=== PATIENT | male | born 1950 | race Caucasian/White ===

== ENCOUNTER 2021-04-20 12:51 | Outpatient (CLI) | payer MEDICARE, OTHER, SELFPAY ==
--- NOTE | 2021-04-20 13:15 | DI.RAD_ITS ---
Exam(s) XR CHEST 2V PA LATERAL EXAM: XR CHEST 2V PA LATERAL CLINICAL HISTORY: COUGH R05.8. TECHNIQUE: 2D digital imaging was performed. COMPARISON: None FINDINGS: Heart size is normal. The mediastinum is not widened. Left lung is clear. There is a right infrahilar density measuring 2 x 1.5 cm. Possible mass versus is vessels visualized end-on. Follow-up CT scan recommended. There are no pleural effusions. IMPRESSION: Right infrahilar densities described above, either mass or possibly just prominent pulmonary artery v isualize end-on. Recommend follow-up CT scan. There are no other pulmonary findings and no pleural effusions evident. DATA REPOSITORY: RADIATION DOSE DELIVERED:
== END 2021-04-20 13:11 ==
PROVIDERS: Visit Provider Physician Assistant Medical
DX: R05.8 Other specified cough (principal); R91.8 Other nonspecific abnormal finding of lung field
CPT/HCPCS: 71046

== ENCOUNTER 2021-04-20 12:55 | Outpatient (REF) | payer MEDICARE, OTHER, SELFPAY ==
[2021-04-20 16:30] LABS: Abs Immature Grans 0.03 10^3/uL (0.0-0.06); Absolute Basophil Count 0.06 10^3/uL (0.0-0.2); Absolute Lymphocyte Count 2.29 10^3/uL (1.2-3.4); Absolute Monocyte Count 0.91 10^3/uL (0.1-0.8); Absolute Neutrophil Count 5.96 10^3/uL (1.2-6.7); Basophils % 0.6; Eosinophils % 1.1; HCT 44.1 % (40.0-50.0); HGB 14.7 g/dL (13.5-17.5); Immature Grans % 0.3; Lymphocytes % 24.5; MCH 30.2 pg (27.0-33.0); MCHC 33.3 % (32.0-36.0); MCV 90.7 fL (80-95); MPV 11.6 fL (8.0-11.0); Monocytes % 9.7; Neutrophils % 63.8; Nucleated RBC 0 %; Platelet Count 251 10^3/uL (130-400); RBC 4.86 10^6/uL (4.36-5.78); RDW 12.5 % (11.8-14.1); RDW-SD 41.1 fL; WBC 9.35 10^3/uL (4.4-10.8)
[2021-04-20 17:07] LABS: Anion Gap 7.6 mmol/L (3-11); BUN 22 mg/dL (7-18); CO2 30.4 mmol/L (21.0-32.0); Calcium 9.4 mg/dL (8.5-10.1); Chloride 105 mmol/L (98-107); Glucose 89 mg/dL (74-106); Potassium 4.2 mmol/L (3.5-5.1); Sodium 143 mmol/L (136-145)
[2021-04-21 11:30] LABS: COVID-19 RT-PCR UVMMC Result Negative (Negative)
== END 2021-04-20 12:56 | disposition home or self-care (01) ==
LOC: LBN 12:55
PROVIDERS: Visit Provider Physician Assistant Medical
DX: R06.00 Dyspnea, unspecified (principal); Z20.822 Contact with and (suspected) exposure to COVID-19; J06.9 Acute upper respiratory infection, unspecified
CPT/HCPCS: 80048; U0003; U0005; 85025; 85379

== ENCOUNTER 2021-04-21 09:04 | Outpatient (CLI) | payer MEDICARE, OTHER, SELFPAY ==
--- NOTE | 2021-04-21 | DI.CT_ITS ---
Exam(s) CT CHEST PE CTA EXAM: CT CHEST PE CTA CLINICAL HISTORY: DYSPNEA, R06.00, CXR SHOWED RT LUNG MASS. TECHNIQUE: Imaging Protocol: Axial CT angiography was performed with multi-slice acquisition and mu lti-planar and/or 3D reconstructions. CONTRAST MATERIAL: Intravenous: Omnipaque 350 Contrast volume:85 ml COMPARISON: CR XR CHEST 2V PA LATERAL from 04/20/2021 CR XR CHEST 2V PA LATERAL from 04/20/2021 FINDINGS: Pulmonary Arteries: No evidence of filling defect to suggest pulmonary emboli. Tracheobronchial tree: Patent where visualized. Mediastinum and Amanda: No dominant adenopathy or fluid collection. Pulmonary parenchyma: No consolidation or dominant measurable mass. Expiratory changes. 4 millimeter nodule superior to the aortic arch. Pleura: No effusion or pneumothorax. Heart: The heart is not dilated. Minimal coronary artery calcifications are seen. Aorta: Thoracic aorta non-dilated. No aneurysm. No dissection. Minimal calcification. Upper abdomen: Unremarkable. Bones: Unremarkable for age. IMPRESSION: No evidence of pulmonary embolism. No evidence of infrahilar mass. 4 millimeter left upper lobe nodule. No further follow-up indicated 4 a low risk patient. In a hig h risk patient a low-dose screening chest CT could be considered in 1 year. RADIATION DOSE DELIVERED: 469.49mGy.cm Total DLP DATA REPOSITORY: All CT scans at this facility are submitted to the National Radiology Data Registry (NRDR) Dose Index Registry (DIR) with the [employer] (ACR). RADIATION OPTIMIZATION: All CT scans at this facility use at least one of these dose optimization te chniques: automated exposure control; mA and/or kV adjustment per patient size (includes targeted exa ms where dose is matched to clinical indication); or iterative reconstruction.
[2021-04-21] MEDS: Normal Saline - Diluent 50 ML VIAL IV (09:11)
[2021-04-21] MEDS: Omnipaque 350 MG/ML 100 ML BTL IJ (09:12)
[2021-04-21] MEDS: Normal Saline Flush 10 ML SYR IVP (09:29)
== END 2021-04-21 09:24 ==
PROVIDERS: Visit Provider Physician Assistant Medical
DX: R06.09 Other forms of dyspnea (principal); R91.1 Solitary pulmonary nodule
CPT/HCPCS: 71275; J3490

== ENCOUNTER 2022-06-11 17:23 | Emergency (ER) | payer MEDICARE, OTHER, SELFPAY ==
--- NOTE | 2022-06-11 17:15 | RT.EKG_ITS ---
APPROVED REPORT Exam: Resting ECG Reason for Exam: CHEST PAIN Patient Location: E HR:58 bpm ECG Measurements Heart Rate 58 AXIS MA 150 P 47 QRSd 105 QRS -3 QT 421 T 30 QTc 414 Conclusion Sinus bradycardia...rate< 60
[2022-06-11 17:28] VITALS: BP 145/85; PULSE 64; RESP 18; TEMP 36.6; O2SAT 99
[2022-06-11 17:40] VITALS: RESP 18
--- NOTE | 2022-06-11 17:44 | ED.GENADUL_ITS ---
Discharge Plan Disposition Patient Disposition: Home Condition: Stable Discharge Details Chief Complaint: Chest Pain Clinical Impression: Chest pain Primary Care Provider: Cinthya,Local ED Provider: Mu Pozo Discharge Instructions Instructions: Chest Pain (ED) Additional Instructions: your blood work and xray did not show concerning findings at this time follow up with your primary care provider within 1 week if you feel more ill, have severe worsening pain or difficulty breathing return to the emergency department Medical Decision Making 71 yo male who states he has a hx of htn comes in with cc of left sided chest pain when he takes deep breaths in. He states this happens every few years, has had negative work ups for this in the past. He states this current episode started last night while sleeping. He denies radiation of pain, diaphoresis, pain with exertion, fevers, chills. He doesn't have pain with exertion. HE arrives stable and appears well on exam, caox4 speaking clearly. He localizes the pain to the left side of his chest and has no visible or palpable deformities. No jvd, no murmurs, normal lung sounds, soft non tender abdomen. Unclear etiology for his pain, will obtain ecg, troponin, and d dimer. No tearing back pain so doubt dissection labs and imaging unremarkable, he is stable in no distress. Given well over 3 hours of symptoms do not feel repeat troponin indicated. Will d/c and have him f/u with his pcp, return precautions given Differential Diagnosis Differential Diagnosis: chest wall pain, pe, ptx Imaging Data Radiologic Study: Attestation: I personally reviewed and interpreted this imaging study as follows: Imaging: X-Ray Radiologist's impression: no acute findings Lab Data Lab results reviewed: Yes I reviewed the patient's lab results. ECG Data Attestation: I personally reviewed and interpreted this ECG (s) as follows: Prior ECG tracings: not available for review Interpretation: sinus bradycardia, rate of 58, pr 150, no acute st t wave ischemic findings HPI General Mode of arrival: ambulatory . Date/Time Provider Initiated Documentation: 06/11/22 17:24 . Limitations to Documentation: no limitations . Information obtained by: patient . History of Present Illness 71 year old M presents to the emergency department with the chief complaint of chest pain, described as moderate, Patient started experiencing this day(s) (1) and it has been constant. No relieving factors improve symptom(s), No exacerbating factors reported . Patient notes no other symptoms.. Patient did receive the following treatments prior to arrival, none General Stated Complaint: Chest Pain KWAKU: 3 Review of Systems All systems reviewed & are unremarkable except as noted in HPI and below Constitutional Constitutional: Denies chills, Denies fever(s) and Denies weakness Eyes Eyes: Denies loss of vision Cardiovascular Cardiovascular: Denies dyspnea Respiratory Respiratory: Denies cough and Denies dyspnea Gastrointestinal Gastrointestinal: Denies abdominal pain, Denies nausea and Denies vomiting Integumentary/Breasts Skin/Breast: Denies rash Neurologic Neurologic: Denies loss of vision and Denies weakness PFSH All Active Problems (Updated 06/11/22 @ 19:50 by Mu Pozo MD) Chest pain (Acute) Social History Smoking/Tobacco Use Status: Never Smoking risk assessment performed?: Yes Alcohol Intake: current Alcohol Intake frequency: holidays/special occasions only Drug use: Never Substance use type: does not use Do you feel safe at home: Yes Do you feel safe in your relationship?: Yes Exam Const General: no acute distress Orientation: alert HENMT Head: normal to inspection Ears: external ears normal General nose exam: external nose normal Mouth: moist mucous membranes Eyes General: appearance normal, both eyes and all related structures Neck Neck: normal visual inspection Chest Chest: normal inspection of the chest Resp Effort & Inspection: normal respiratory effort and able to speak in complete sentences Auscultation: clear to auscultation bilaterally Cardio Jugular venous pressure: no JVD Rate: regular rate Heart Sounds: no murmurs GI Palpation: soft and nontender Skin General skin exam: no rashes or lesions noted Neuro General: patient alert and patient oriented x3 Extrem General: normal to inspection Psych Mental Status: mental status grossly normal Course Vital Signs Vital signs: Vital Signs Temperature 36.6 C 06/11/22 17:28 Pulse 64 06/11/22 17:28 Respiratory Rate 18 06/11/22 17:28 Blood Pressure 145/85 H 06/11/22 17:28 Pulse Oximetry 99 06/11/22 17:28 Temperature 36.6 C 06/11/22 17:28 Temperature Source Temporal Artery Scan 06/11/22 17:28 Pulse 64 06/11/22 17:28 Respiratory Rate 18 06/11/22 17:28 Blood Pressure 145/85 H 06/11/22 17:28 Blood Pressure Position Sitting 06/11/22 17:28 Pulse Oximetry 99 06/11/22 17:28 Oxygen Delivery Method Room Air 06/11/22 17:28 Oxygen Flow Rate 0 06/11/22 17:28 Pain Level 2 06/11/22 17:28
--- NOTE | 2022-06-11 18:00 | DI.RAD_ITS ---
Exam(s) XR CHEST 2V PA LATERAL EXAM: XR CHEST 2V PA LATERAL CLINICAL HISTORY: left sided chest pain TECHNIQUE: 2D digital imaging was performed of the chest. Two images were obtained. PA and lateral views were obtained. COMPARISON: CR XR CHEST 2V PA LATERAL from 04/20/2021 FINDINGS: MEDIASTINUM: Normal. HEART: Normal. PULMONARY VASCULATURE: Normal. LUNGS: Clear. PLEURAL SPACE: No pleural effusion or pneumothorax. BONE:Within normal limits for the patient's age. OTHER FINDINGS:Normal. IMPRESSION: No acute pulmonary findings. DATA REPOSITORY: RADIATION DOSE DELIVERED:
[2022-06-11 18:02] LABS: Abs Immature Grans 0.05 10^3/uL (0.0-0.06); Absolute Basophil Count 0.06 10^3/uL (0.0-0.2); Absolute Eosinophil Count 0.16 10^3/uL (0.0-0.7); Absolute Lymphocyte Count 2.22 10^3/uL (1.2-3.4); Absolute Monocyte Count 1.08 10^3/uL (0.1-0.8); Basophils % 0.5; Eosinophils % 1.3; HCT 43.6 % (40.0-50.0); Immature Grans % 0.4; Lymphocytes % 18.4; MCH 30.5 pg (27.0-33.0); MCHC 34.4 % (32.0-36.0); MCV 89 fL (80-95); Monocytes % 8.9; Neutrophils % 70.5; Platelet Count 244 10^3/uL (130-400); RBC 4.91 10^6/uL (4.36-5.78); RDW 12.2 % (11.8-14.1); RDW-SD 39.8 fL; WBC 12.08 10^3/uL (4.4-10.8)
[2022-06-11 18:03] LABS: Absolute Neutrophil Count 8.52 10^3/uL (1.2-6.7)
[2022-06-11 18:28] LABS: ALT 34 U/L (16-63); AST 30 U/L (15-37); Alkaline Phosphatase 89 U/L (46-116); Anion Gap 5.8 mmol/L (3-11); BUN 26 mg/dL (7-18); Bilirubin, Total 0.3 mg/dL (0.2-1.0); CO2 29.2 mmol/L (21.0-32.0); CREATININE 1.1 mg/dL (0.70-1.30); Calcium 8.7 mg/dL (8.5-10.1); Chloride 101 mmol/L (98-107); Estimated GFR 72.22 (mL/min/1.73m2); Glucose 101 mg/dL (74-106); Potassium 3.7 mmol/L (3.5-5.1); Sodium 136 mmol/L (136-145); Total Protein 7.8 g/dL (6.4-8.2); Troponin I < 50 ng/L (<or=60)
[2022-06-11 18:40] LABS: D-Dimer 413 ng/mlFEU (<500)
--- NOTE | 2022-06-11 19:11 | DI.VRAD_ITS ---
PROCEDURE INFORMATION: Exam: XR Chest Exam date and time: 06/11/2022 6:30 PM Age: 71 years old Clinical indication: Other: Chest pain TECHNIQUE: Imaging protocol: Radiologic exam of the chest. Views: 2 views. COMPARISON: CR XR CHEST 2V PA LATERAL 04/20/2021 1:16 PM FINDINGS: Lungs: The lungs are clear without infiltrate or edema. Pleural spaces: No pleural effusion. No pneumothorax. Heart/Mediastinum: The cardiac silhouette is normal in size. Bones/joints: No acute osseous abnormality. IMPRESSION: No acute findings. Dictated and Authenticated by: Juany Contreras MD. Ordering:STELLA Dobbins MD
[2022-06-11 19:55] VITALS: BP 126/76; PULSE 67; RESP 18; O2SAT 96
== END 2022-06-11 20:21 | disposition home or self-care (01) ==
PROVIDERS: Emergency Provider Emergency Medicine
DX: R07.9 Chest pain, unspecified (principal); I10 Essential (primary) hypertension
CPT/HCPCS: 80053; 93005; 99283; 71046; 84484; 85025; 85379; 93010; 99285

== ENCOUNTER 2022-11-30 23:16 | Emergency (ER) | payer MEDICARE, OTHER, SELFPAY ==
--- NOTE | 2022-11-30 23:15 | RT.EKG_ITS ---
APPROVED REPORT Exam: Resting ECG Reason for Exam: stroke alter Patient Location: E HR:51 bpm ECG Measurements Heart Rate 51 AXIS SC 157 P 46 QRSd 107 QRS 3 QT 453 T 37 QTc 418 Conclusion Sinus bradycardia...rate< 60
[2022-11-30 23:21] VITALS: BP 161/94; PULSE 60; RESP 11; TEMP 36.9; O2SAT 99
--- NOTE | 2022-11-30 23:29 | DI.CT_ITS ---
Exam(s) CT BRAIN NECK CTA EXAM: CT BRAIN NECK CTA CLINICAL HISTORY: right side facial droop. TECHNIQUE: Imaging Protocol: Axial CT angiography was performed with multi-slice acquisition and mu lti-planar and/or 3D reconstructions. CONTRAST MATERIAL: Intravenous: Omnipaque 350 contrast volume:85 mL COMPARISON: CT CT CHEST PE CTA from 04/21/2021 FINDINGS: CT Head W/O and W: Ventricles and Extra axial spaces: Normal in size and morphology for the patient's age. Hemorrhage: None. Cerebral parenchyma: No evidence of an acute territorial infarct is seen. There are areas of decreas ed attenuation in the white matter most consistent with small vessel ischemic disease. Midline shift: None. Brainstem/Cerebellum: Normal. Calvarium: Normal. Visualized Paranasal sinuses/Mastoids: Clear. Soft Tissues: Unremarkable. Enhancement: Unremarkable. CTA Neck W: Common Carotid: Right: No dissection, occlusion or significant stenosis. Left: No dissection, occlusion or significant stenosis. External Carotid: Right: No occlusion or significant stenosis. Left: No occlusion or significant stenosis. Internal Carotid: Right: No dissection, occlusion or significant stenosis. Left: No dissection, occlusion or significant stenosis. Vertebral Artery: Right: No dissection, occlusion or significant stenosis. Left: No dissection, occlusion or significant stenosis. Lung Apices: Normal. Bones: Within normal limits for the patient's age. Soft Tissues: Normal. Thyroid gland: Unremarkable. CTA Brain W: Internal Carotid Arteries: No aneurysm, occlusion or significant stenosis. Anterior Cerebral Arteries: Right: No aneurysm, occlusion or significant stenosis. Left: No aneurysm, occlusion or significant stenosis. Middle Cerebral Arteries: Right: No aneurysm, occlusion or significant stenosis. Left: No aneurysm, occlusion or significant stenosis. Posterior Cerebral Arteries: Right: No aneurysm, occlusion or significant stenosis. Left: No aneurysm, occlusion or significant stenosis. Vertebral Arteries: Right: No aneurysm. The right vertebral artery in this in the PICA. Left: No aneurysm, occlusion or significant stenosis. There is a dominant left vertebral artery. Basilar Artery: No aneurysm, occlusion or significant stenosis. IMPRESSION: 1. No large vessel occlusion or significant stenosis on the CT angiography of the head. 2. No acute intracranial process. 3. No occlusion or significant stenosis on the CT angiography of the neck. RADIATION DOSE DELIVERED: 2,365.66mGy.cm Total DLP DATA REPOSITORY: All CT scans at this facility are submitted to the National Radiology Data Registry (NRDR) Dose Index Registry (DIR) with the [employer] (ACR). RADIATION OPTIMIZATION: All CT scans at this facility use at least one of these dose optimization te chniques: automated exposure control; mA and/or kV adjustment per patient size (includes targeted exa ms where dose is matched to clinical indication); or iterative reconstruction.
--- NOTE | 2022-11-30 23:30 | ED.GENADUL_ITS ---
Discharge Plan Disposition Patient Disposition: Home Discharge Details Clinical Impression: Suero's palsy Primary Care Provider: Azeem Ross ED Provider: Evelio Martin Meds and New Rx's Prescriptions: New doxycycline hyclate 100 mg capsule 100 mg PO BID Qty: 42 0RF Continued lisinopril 20 mg tablet 20 mg PO DAILY Patient Comments: TAKE ONE TABLET BY MOUTH EVERY DAY hydrochlorothiazide 25 mg tablet 25 mg PO DAILY Patient Comments: TAKE ONE TABLET BY MOUTH EVERY DAY sertraline 50 mg tablet 50 mg PO DAILY Patient Comments: TAKE ONE TABLET BY MOUTH EVERY DAY rosuvastatin 5 mg tablet 5 mg PO DAILY Patient Comments: TAKE ONE TABLET BY MOUTH EVERY DAY Discharge Instructions Instructions: Suero Palsy (ED) Discharge Data Discharge Physician: Evelio Martin Medical Decision Making Patient presents emergency department with right facial palsy that happened suddenly. He states that he did pick but takes but has not developed any signs of rashes or Lyme disease. NIH score is 0. Patient had a stroke protocol when he came in with the CT head without contrast and CTA angiogram of the head and neck. Both CT head and CT angiogram are negative he has no stenosis so most likely this is isolated Suero's palsy he will be treated with doxycycline and laboratories have been obtained to rule out Lyme disease. He has been advised that he is to follow-up with his primary care physician which he says he will in case he is not improving and will need further treatments for the Suero's palsy. Differential Diagnosis Differential Diagnosis: 1. CVA 2. Suero's palsy. Lyme's disease Medical Records Medical records reviewed: Yes I reviewed the patient's medical records. Imaging Data Radiologic Study: Imaging: CT Scan My impression: CT head and CT angiogram negative as reported by the radiologist Radiologist's impression: CT head: No acute intracranial abnormality, CT angiogram no stenosis or occlusion Lab Data Lab results reviewed: Yes I reviewed the patient's lab results. Lab results narrative: All labs are unremarkable and negative Labs: Back White Blood Count (Complete) 11/30/22 Red Blood Count (Complete) 11/30/22 Hemoglobin (Complete) 11/30/22 Hematocrit (Complete) 11/30/22 Mean Corpuscular Volume (Complete) 11/30/22 Mean Corpuscular Hemoglobin (Complete) 11/30/22 Mean Corpuscular Hemoglobin Concent (Complete) 11/30/22 Red Cell Distribution Width (Complete) 11/30/22 Platelet Count (Complete) 11/30/22 Mean Platelet Volume (Complete) 11/30/22 Immature Granulocytes % (Complete) 11/30/22 Neutrophils % (Complete) 11/30/22 Lymphocytes % (Complete) 11/30/22 Monocytes % (Complete) 11/30/22 Eosinophils % (Complete) 11/30/22 Basophils % (Complete) 11/30/22 Nucleated Red Blood Cells % (Complete) 11/30/22 Absolute Neutrophil (Complete) 11/30/22 Absolute Lymphocytes (Complete) 11/30/22 Absolute Monocytes (CBC) (Complete) 11/30/22 Absolute Eosinophils (CBC) (Complete) 11/30/22 Absolute Basophils (CBC) (Complete) 11/30/22 RUN DATE: 12/01/22 [facility] PAGE 1 RUN TIME: [address] RUN USER: [place] [address] Rose Pepe MD PATIENT REPORT PATIENT: Sherif Foster LOC: ER U #: [id number] /SX: 1950 M ROOM: RE11/30/[address]: EVELIO MARTIN MD STATUS: REG ER BED: DIS: SPEC #: [id number] JS: 11/30/22 STATUS: COMP REQ #: [id number] RECD: 11/30/[address]: EVELIO MARTIN MD ENTERED: 11/30/[address]: Azeem Ross M.D. FAX #: ORDERED: CBC/Diff Test Result Flag Reference Verified WBC 9.25 4.4-10.8 10^3/uL 11/30/22-2339 RBC 4.93 4.36-5.78 10^6/uL 11/30/22-2339 HGB 14.9 13.5-17.5 g/dL 11/30/22-2339 HCT 44.0 40.0-50.0 % 11/30/22 MCV 89 80-95 fL MCH 30.2 27.0-33.0 pg 11/30/22 MCHC 33.9 32.0-36.0 % 11/30/22 RDW 11.9 11.8-14.1 % 11/30/22 Platelet Count 231 130-400 10^3/uL 11/30/22 MPV 11.2 H 8.0-11.0 fL 11/30/22 Neutrophils % 60.0 11/30/22 Lymphocytes % 25.6 11/30/22 Monocytes % 10.3 11/30/22 Eosinophils % 3.4 11/30/22 Basophils % 0.6 11/30/22 Immature Grans % 0.1 11/30/22 Nucleated RBC 0.0 0.0-0.3 % 11/30/22 Absolute Neutrophil Count 5.55 1.2-6.7 10^3/uL 11/30/22 Absolute Lymphocyte Count 2.37 1.2-3.4 10^3/uL 11/30/22 Absolute Monocyte Count 0.95 H 0.1-0.8 10^3/uL 11/30/22 Absolute Eosinophil Count 0.31 0.0-0.7 10^3/uL 11/30/22 Absolute Basophil Count 0.06 0.0-0.2 10^3/uL 11/30/22 Patient: Sherif Foster LABORATORY Acct#[id number] Unit#[id number] RUN DATE: 12/01/22 [facility] PAGE 1 RUN TIME: [id number] RUN USER: [place] [address] Rose Pepe MD PATIENT REPORT PATIENT: Sherif Foster LOC: ER U #: [id number] /SX: 1950 M ROOM: RE11/30/[address]: EVELIO MARTIN MD STATUS: REG ER BED: DIS: SPEC #: [id number] JS: 11/30/22 STATUS: COMP REQ #: [id number] RECD: 11/30/[address]: EVELIO MARTIN MD ENTERED: 11/30/22 [facility] DR: Azeem Ross M.D. FAX #: ORDERED: CMP, MG, Troponin I Test Result Flag Reference Verified Calcium 9.2 8.5-10.1 mg/dL 11/30/22 Glucose 123 H 74-106 mg/dL 11/30/22 BUN 18 7-18 mg/dL 11/30/22 Creatinine 1.1 0.70-1.30 mg/dL 11/30/22 Estimated GFR 71.77 mL/min/1.73m2 0 11/30/22 The eGFR is calculated from a serum creatinine using the CKD-EPI 2020 equation. Other variables required for the equation are gender and age; this equation does not include a race coefficient. This equation has similar overall performance to previous equations except values may differ, in particular, in patients with higher values of eGFR and younger-aged adults. Total Protein 8.4 H 6.4-8.2 g/dL 11/30/22 Albumin 4.2 3.4-5.0 g/dL 11/30/22 Bilirubin, Total 0.4 0.2-1.0 mg/dL 11/30/22 Alk Phos 90 46-116 U/L 11/30/22 Sodium 139 136-145 mmol/L 11/30/22 Potassium 3.4 L 3.5-5.1 mmol/L 11/30/22 Chloride 101 98-107 mmol/L 11/30/22 CO2 30.2 21.0-32.0 mmol/L 11/30/22 Anion Gap 7.8 3-11 mmol/L 11/30/22 AST 25 15-37 U/L 11/03 ALT 32 16-63 U/L 11/30/22 Magnesium 2.2 1.8-2.4 mg/dL 11/30/22 Cardiac Troponin I < 50 <or=60 ng/L 11/30/22 Patient: Sherif Foster LABORATORY Acct#[id number] Unit#[id number] ECG Data Attestation: I personally reviewed and interpreted this ECG (s) as follows: Prior ECG tracings: available for review Interpretation: Normal sinus rhythm heart rate [address]-T changes sinus pericardia normal axis HPI General Date/Time Provider Initiated Documentation: 11/30/22 23:28 . HPI Narrative: Patient presents to the emergency departmentAfter he noticed right facial droop. States that he was willing to bring his cats in and noticed he could not whistle. Patient has a history of Suero's palsy but came in for he was concerned he might be having a stroke. Denies any upper or lower extremity weakness or nu mbness. Denies any difficulty speaking. Related Data Home Medications Medication Instructions Recorded Confirmed hydrochlorothiazide 25 mg tablet 25 mg PO DAILY 11/30/22 11/30/22 lisinopril 20 mg tablet 20 mg PO DAILY 11/30/22 11/30/22 rosuvastatin 5 mg tablet 5 mg PO DAILY 11/30/22 11/30/22 sertraline 50 mg tablet 50 mg PO DAILY 11/30/22 11/30/22 doxycycline hyclate 100 mg capsule 100 mg PO BID #42 caps 12/01/22 Previous Rx's Medication Instructions Recorded doxycycline hyclate 100 mg capsule 100 mg PO BID #42 caps 12/01/22 Allergies Allergy/AdvReac Type Severity Reaction Status Date / Time No Known Allergies Allergy Unverified 11/30/22 23:25 General Stated Complaint: CVA/TIA KWAKU: 2 Review of Systems All systems reviewed & are unremarkable except as noted in HPI and below Constitutional Constitutional: Reports as per HPI and Reports system reviewed and no additional complaints, except as documented Eyes Eyes: Reports as per HPI and Reports system reviewed and no additional complaints, except as documented ENT Ears, Nose, Mouth, and Throat: Reports system reviewed and no additional complaints, except as documented Cardiovascular Cardiovascular: Reports as per HPI and Reports system reviewed and no additional complaints, except as documented Respiratory Respiratory: Reports as per HPI and Reports system reviewed and no additional complaints, except as documented Gastrointestinal Gastrointestinal: Reports as per HPI and Reports system reviewed and no additional complaints, except as documented Genitourinary Genitourinary: Reports system reviewed and no additional complaints, except as documented Musculoskeletal Musculoskeletal: Reports system reviewed and no additional complaints, except as documented Integumentary/Breasts Skin/Breast: Reports system reviewed and no additional complaints, except as documented Neurologic Neurologic: Reports system reviewed and no additional complaints, except as documented Psychiatric Psychiatric: Reports system reviewed and no additional complaints, except as documented Endocrine Endocrine: Reports system reviewed and no additional complaints, except as documented PFSH All Active Problems (Updated 12/01/22 @ 00:58 by Evelio Martin MD) Suero's palsy (Acute) Social History Smoking/Tobacco Use Status: Never Smoking risk assessment performed?: Yes Alcohol Intake: current Alcohol Intake frequency: holidays/special occasions only Drug use: Never Substance use type: does not use Do you feel safe at home: Yes Do you feel safe in your relationship?: Yes Exam Narrative Exam Narrative: Exam; vitals signs as reported above Constitutional; In no acute distress, afebrile General: cooperative, healthy appearing, comfortable and no acute distress HEENT: Head: normal to inspection, no palpable skull fracture and normocephalic Eyes: l: appearance normal, both eyes and all related structures ]Pupils: PERRL EOM: EOM intact bilaterally Direct ophthalmoscopy: normal light reflex, normal conjunctiva, normal visual acuity Neck no JVD, supple Neck: normal visual inspection, full ROM and no lymphadenopathy Chest Chest: normal inspection of the chest Respiratory : normal respiratory effort and able to speak in complete sentences Cardio Rate: regular rate Rhythm: regular rhythm normal heart sounds S1 and S2 no murmurs, gallops, or rubs GI Inspection: normal to inspection, normal bowel sounds, soft, non tender, non distended, no organomegally Back/Spine/ no CVA tenderness Thoracic/Lumbar Spine: no tenderness or deformities Skin no rashes or lesions Neuro: patient alert and no meningeal signs, Cranial Nerves: CN's II-XI intact bilaterally except for central nerve VII which has a peripheral palsy on the right, Cognition: normal cognition, Speech: speech normal, Gait: normal gait, Depp tendon reflexes normal 2+ Extremities, no edema, full range of motion, normal strength NIH score equals 0 Course Vital Signs Vital signs: Vital Signs Temperature 36.9 C 11/30/22 23:21 Pulse 60 11/30/22 23:21 Respiratory Rate 11 L 11/30/22 23:21 Blood Pressure 161/94 H 11/30/22 23:21 Pulse Oximetry 99 11/30/22 23:21 Temperature 36.9 C 11/30/22 23:21 Temperature Source Skin 11/30/22 23:21 Pulse 60 11/30/22 23:21 Respiratory Rate 11 L 11/30/22 23:21 Respiratory Effort Normal 11/30/22 23:21 Blood Pressure 161/94 H 11/30/22 23:21 Blood Pressure Position Supine 11/30/22 23:21 Pulse Oximetry 99 11/30/22 23:21 Oxygen Delivery Method Room Air 11/30/22 23:21 Oxygen Flow Rate 0 11/30/22 23:21
[2022-11-30 23:32] VITALS: O2SAT 94
[2022-11-30 23:36] LABS: Abs Immature Grans 0.01 10^3/uL (0.0-0.06); Absolute Basophil Count 0.06 10^3/uL (0.0-0.2); Absolute Eosinophil Count 0.31 10^3/uL (0.0-0.7); Absolute Lymphocyte Count 2.37 10^3/uL (1.2-3.4); Absolute Monocyte Count 0.95 10^3/uL (0.1-0.8); Absolute Neutrophil Count 5.55 10^3/uL (1.2-6.7); Basophils % 0.6; Eosinophils % 3.4; HGB 14.9 g/dL (13.5-17.5); Immature Grans % 0.1; Lymphocytes % 25.6; MCH 30.2 pg (27.0-33.0); MCHC 33.9 % (32.0-36.0); MCV 89 fL (80-95); MPV 11.2 fL (8.0-11.0); Monocytes % 10.3; Platelet Count 231 10^3/uL (130-400); RBC 4.93 10^6/uL (4.36-5.78); RDW 11.9 % (11.8-14.1); RDW-SD 38.4 fL; WBC 9.25 10^3/uL (4.4-10.8)
[2022-11-30] MEDS: Omnipaque 350 MG/ML 100 ML BTL IJ (23:48)
[2022-11-30] MEDS: Normal Saline - Diluent 50 ML VIAL IJ (23:48)
[2022-11-30 23:55] LABS: ALT 32 U/L (16-63); AST 25 U/L (15-37); Albumin 4.2 g/dL (3.4-5.0); Alkaline Phosphatase 90 U/L (46-116); Anion Gap 7.8 mmol/L (3-11); BUN 18 mg/dL (7-18); Bilirubin, Total 0.4 mg/dL (0.2-1.0); CO2 30.2 mmol/L (21.0-32.0); CREATININE 1.1 mg/dL (0.70-1.30); Calcium 9.2 mg/dL (8.5-10.1); Chloride 101 mmol/L (98-107); Estimated GFR 71.77 (mL/min/1.73m2); Glucose 123 mg/dL (74-106); Magnesium 2.2 mg/dL (1.8-2.4); Potassium 3.4 mmol/L (3.5-5.1); Sodium 139 mmol/L (136-145); Total Protein 8.4 g/dL (6.4-8.2); Troponin I < 50 ng/L (<or=60)
[2022-11-30 23:58] VITALS: RESP 16
--- NOTE | 2022-12-01 00:13 | DI.VRAD_ITS ---
PROCEDURE INFORMATION: Exam: CT Head Without Contrast Exam date and time: 11/30/2022 11:45 PM Age: 72 years old Clinical indication: Stroke-like symptoms; Right facial droop; Additional info: Right side facial droop TECHNIQUE: Imaging protocol: Computed tomography of the head without contrast. Radiation optimization: All CT scans at this facility use at least one of these dose optimization techniques: automated exposure control; mA and/or kV adjustment per patient size (includes targeted exams where dose is matched to clinical indication); or iterative reconstruction. Other technique: STROKE PROTOCOL was implemented. COMPARISON: No relevant prior studies available. FINDINGS: Brain: Normal. No hemorrhage. Unremarkable white matter. No mass effect. Cerebral ventricles: No ventriculomegaly. Paranasal sinuses: Visualized sinuses are unremarkable. No fluid levels. Mastoid air cells: Visualized mastoid air cells are well aerated. Bones/joints: Unremarkable. No acute fracture. Soft tissues: Unremarkable. IMPRESSION: No acute intracranial abnormality. ASSESSMENT: ASPECTS ([place] Stroke Program Early CT Score) is 10. PROCEDURE INFORMATION: Exam: CTA Head Without And With Contrast, Arteriography Exam date and time: 11/30/2022 11:45 PM Age: 72 years old Clinical indication: Stroke-like symptoms; Right facial droop; Additional info: Right side facial droop TECHNIQUE: Imaging protocol: Computed tomographic angiography of the head without and with contrast. Exam focused on the arteries. 3D rendering (Not supervised by radiologist): MIP and/or 3D reconstructed images were created by the technologist. Radiation optimization: All CT scans at this facility use at least one of these dose optimization techniques: automated exposure control; mA and/or kV adjustment per patient size (includes targeted exams where dose is matched to clinical indication); or iterative reconstruction. Contrast material: OMNI 350; Contrast volume: 85 ml; Contrast route: INTRAVENOUS (IV); Other technique: STROKE PROTOCOL was implemented. COMPARISON: No relevant prior studies available. FINDINGS: ANTERIOR CIRCULATION: Right internal carotid artery: Intracranial segment is patent with no significant stenosis or occlusion. No aneurysm. Right middle cerebral artery: No occlusion or significant stenosis. No aneurysm. Right anterior cerebral artery: No occlusion or significant stenosis. No aneurysm. Left internal carotid artery: Intracranial segment is patent with no significant stenosis. No aneurysm. Left middle cerebral artery: No occlusion or significant stenosis. No aneurysm. Left anterior cerebral artery: No occlusion or significant stenosis. No aneurysm. POSTERIOR CIRCULATION: Right vertebral artery: Ends in PICA. Left vertebral artery: No occlusion or significant stenosis. No aneurysm. Basilar artery: No occlusion or significant stenosis. No aneurysm. Right posterior cerebral artery: No occlusion or significant stenosis. No aneurysm. Left posterior cerebral artery: No occlusion or significant stenosis. No aneurysm. HEAD: Brain: Normal. No hemorrhage. Unremarkable white matter. No mass effect. Cerebral ventricles: Normal. No ventriculomegaly. Bones/joints: Unremarkable. No acute fracture. Paranasal sinuses: Visualized sinuses are normal. No fluid levels. Mastoid air cells: Visualized mastoids are normal. No mastoid effusion. Soft tissues: Unremarkable. IMPRESSION: No large vessel occlusion. Unremarkable CT head. ASSESSMENT: ASPECTS ([place] Stroke Program Early CT Score) 10. PROCEDURE INFORMATION: Exam: CTA Neck Without And With Contrast Exam date and time: 11/30/2022 11:45 PM Age: 72 years old Clinical indication: Stroke-like symptoms; Right facial droop; Additional info: Right side facial droop TECHNIQUE: Imaging protocol: Computed tomographic angiography of the neck without and with contrast. 3D rendering (Not supervised by radiologist): MIP and/or 3D reconstructed images were created by the technologist. Radiation optimization: All CT scans at this facility use at least one of these dose optimization techniques: automated exposure control; mA and/or kV adjustment per patient size (includes targeted exams where dose is matched to clinical indication); or iterative reconstruction. Contrast material: OMNI 350; Contrast volume: 85 ml; Contrast route: INTRAVENOUS (IV); COMPARISON: CT CHEST PE CTA 04/21/2021 9:13 AM FINDINGS: Right common carotid artery: No stenosis. No dissection or occlusion. Right internal carotid artery: No stenosis of the extracranial segment. No dissection or occlusion. Right external carotid artery: No occlusion or stenosis of the origin. Left common carotid artery: No stenosis. No dissection or occlusion. Left internal carotid artery: No stenosis of the extracranial segment. No dissection or occlusion. Left external carotid artery: No occlusion or stenosis of the origin. Right vertebral artery: No stenosis. No dissection or occlusion. Left vertebral artery: No stenosis. No dissection or occlusion. Soft tissues: Normal. No significant soft tissue swelling. Bones/joints: No acute fracture. IMPRESSION: No stenosis or occlusion. REFERENCES: NASCET CRITERIA. The degree of stenosis in the cervical segment of the internal carotid artery is based on NASCET criteria. Normal is no stenosis. Mild is less than 50% stenosis. Moderate is 50-69% stenosis. Severe is 70% to 99% stenosis. Total occlusion is no detectable patent lumen. Dictated and Authenticated by: Sukhjinder Seth MD. Ordering:EDUARDO Fraser MD
[2022-12-01] MEDS: Doxycycline Hyclate 100 MG CAP PO (01:00)
[2022-12-01 01:09] VITALS: BP 161/94; PULSE 60; RESP 16; TEMP 36.9; O2SAT 94
[2022-12-03 11:07] LABS: Lyme Ab w Rflx to Lyme Confirm Negative (Negative)
== END 2022-12-01 01:08 | disposition home or self-care (01) ==
PROVIDERS: Emergency Provider Emergency Medicine Emergency Medical Services; PCP Emergency Medicine
DX: G51.0 Bell's palsy (principal)
CPT/HCPCS: 36415; 70496; 70498; 80053; 93005; 99285; 83735; 84484; 85025; 86618; 93010; 99284; J3490